=== PATIENT | female | born 1965 | race Caucasian/White ===

== ENCOUNTER 2018-01-09 13:40 | Emergency (ER) | payer OTHER, MEDICARE ==
[~2018-01-09] VITALS: Ht 165.1 cm; Wt 63.5 kg
[~2018-01-09 13:40] MED LIST: ABILIFY 10 MG10 MG PO; ADDERALL20 MG PO; ALBUTEROL0.09 MG/A1 INH; BACLOFEN20 MG PO; CALCIUM 600600 M1 PO; COPAXONE40 MG/ML IM; CRANBERRY250 MG PO; CYCLOBENZAPRINE10 M1 PO; CYTOMEL PO; DUAVEE PO; ENDOCET 325 MG-1 TA2 PO; FIORICET 325 MG1 TAB PO; GOOD SENSE IBU200 MG PO; HYDROCORTISONE2.51 TOP; IPRATROPIUM BRO30 ML NAS; KLONOPIN0.5 MG PO; LAMICTAL200 MG PO; LUNESTA3 MG PO; MILK OF MAGNESI30 ML; MINOCYCLINE100 MG PO; MULTIVITAMIN1 TAB PO; NEXIUM40 MG PO; NYSTATIN AND TR1 CR1 TOP; OMEGA-31000 MG PO; OMNARIS50 MCG/Act NAS; PATANASE0.6% NASB; PHAZYME125 MG PO; PRISTIQ 50MG50 MG PO; SYNTHROID0.112 MG PO; VALTREX500 MG PO; VITAB121000 PO; VITAMIN D35000 IU PO
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
--- NOTE | 2018-01-09 17:04 | RADIOLOGY REPORT ---
EXAMINATION: XR THORACIC SPINE CLINICAL INFORMATION: Pain. Presumptive diagnosis of fracture. COMPARISON: Chest x-ray dated 07/02/2014. TECHNIQUE: 3 views of the thoracic spine were obtained on 4 images. FINDINGS: There is no fracture or bone destruction seen and the thoracic vertebral alignment is normal. There is no disc space narrowing. There is no abnormality of the paraspinal soft tissues. In the lower cervical spine, moderate degenerative disc disease is seen at the C5-6 level. IMPRESSION: 1. No evidence of thoracic spine fracture. 2. Moderate degenerative disc disease at the C5-6 level.
[2018-01-09] MEDS ORDERED: NAPROSYN500 M1 PO (17:50)
[2018-01-09] MEDS ORDERED: LIDODERM1 EACH TOP (17:50)
[2018-01-09 17:53] VITALS: BP 117/68
== END 2018-01-09 17:57 ==
LOC: ERH 13:40
DX: M54.6 Pain in thoracic spine (principal); G35 Multiple sclerosis; I10 Essential (primary) hypertension; J45.909 Unspecified asthma, uncomplicated; V89.2XXA Person injured in unspecified motor-vehicle accident, traffic, initial encounter; Y93.9 Activity, unspecified; Y92.415 Exit ramp or entrance ramp of street or highway as the place of occurrence of the external cause
CPT/HCPCS: 72070; 96372; J1885